=== PATIENT | male | born 1930 | race Caucasian/White ===

== ENCOUNTER 2016-09-06 17:13 | Emergency (ER) | payer MEDICARE ==
[2016-02-27 09:29] VITALS: BMI 23.0
[~2016-09-06 17:13] MED LIST: BAYER CHEWABLE81 MG PO; CELEXA10 MG PO; FLOMAX0.4 MG PO; HCTZ25 MG PO; HYDROCODONE-APA1 TAB PO; LANOXIN125 MCG PO; LEXAPRO10 MG PO; METOPROLOL TART25 MG PO; MIRAPEX0.5 MG PO; MULTI-DAY VITAM1 TAB PO; PRILOSEC10 M1 PO; TRAZODONE HCL50 MG PO; VOLTAREN25 MG PO; ZESTORETIC 20-1 EACH PO; ZOCOR20 MG PO
== END 2016-09-06 20:20 | disposition home or self-care (01) ==
LOC: D.ER 17:13
DX: M54.5 Low back pain (principal); F43.20 Adjustment disorder, unspecified

== ENCOUNTER 2016-10-05 19:50 | Emergency (ER) | payer MEDICARE ==
[2016-02-27 09:29] VITALS: BMI 23.0
== END 2016-10-05 22:00 | disposition home or self-care (01) ==
LOC: D.ER 19:50
DX: S30.0XXA Contusion of lower back and pelvis, initial encounter (principal); W18.30XA Fall on same level, unspecified, initial encounter; F17.200 Nicotine dependence, unspecified, uncomplicated

== ENCOUNTER 2016-12-30 18:14 | Observation (INO) | payer MEDICARE ==
[~2016-12-30] VITALS: Ht 180.3 cm; Wt 82.1 kg
[2016-12-30 19:05] LABS: BASOPHILS 0.2 % (0-2); EOSINOPHILS 7.7 % (0-7); HEMATOCRIT 35.4 % (42.0-54.0); HEMOGLOBIN 11.9 g/dL (13.5-17.5); IMMATURE GRANULOCYTES 0.2 % (0-5); LYMPHOCYTES 20.2 % (15-50); MCH 32.7 pg (26.0-34.0); MCHC 33.6 g/dL (31.0-37.0); MCV 97.3 fL (80.0-100.0); MEAN PLATELET VOLUME 9.8 fL (7.4-10.4); MONOCYTES 13.7 % (2-11); PLATELET COUNT 159 10x3/uL (130-400); RBC 3.64 10x6/uL (4.20-6.10); WBC 5.3 10x3/uL (4.8-10.8)
[2016-12-30 19:19] LABS: ALBUMIN 3.2 g/dL (3.4-5.0); ALKALINE PHOSPHATASE 106 U/L (46-116); ALT (SGPT) 20 U/L (10-68); CALC OSMOLALITY 284 mosm/kg (275-300); CALCIUM 8.9 mg/dL (8.5-10.1); CARBON DIOXIDE 25.1 mmol/L (21.0-32.0); CHLORIDE - SERUM 106 mmol/L (98-107); CREATININE - SERUM 1.2 mg/dL (0.6-1.3); GLUCOSE 98 mg/dL (74-106); PROTEIN - SERUM 7.7 g/dL (6.4-8.2); SODIUM 141 mmol/L (136-145); UREA NITROGEN 25 mg/dL (7-18); eGFR NON AFRICAN AMERICAN 61 mL/min (90-120)
[2016-12-30 19:30] LABS: CHOL - HDL RATIO 3.5 ratio (2.3-4.9); CHOLESTEROL, TOTAL 123 mg/dL (0-200); CKMB 2.6 U/L (0.0-3.6); CREATINE KINASE 70 UL (21-232); HDL CHOLESTEROL 35 mg/dL (32-96); LDL CHOLESTEROL 72 mg/dL (0-100); LDL-HDL RATIO 2.1 ratio (1.5-3.5); TRIGLYCERIDE 84 mg/dL (30-200); TROPONIN-I < 0.017 ng/mL (0.000-0.060)
--- NOTE | 2016-12-30 22:42 | NUR ---
REPORT RECEIVED FROM JODI BEE RN.
--- NOTE | 2016-12-30 23:07 | NUR ---
ARRIVED TO FLOOR VIA STRETCHER, ACCOMPANIED BY HOSPITAL STAFF. PLACED ON TELEMETRY. ORIENTED TO UNIT. CALL LIGHT IN REACH. WILL CONTINUE TO MONITOR. SEE NURSE ASSESSMENT.
[2016-12-31] VITALS: BP 117/54
[2016-12-31] MEDS ORDERED: NORVASC10 MG PO (00:35)
[2016-12-31] MEDS ORDERED: FOLIC ACID1 MG PO (00:36)
[2016-12-31] MEDS ORDERED: NORMODYNE / TR200 MG PO (00:36)
[2016-12-31] MEDS ORDERED: FUROSEMIDE20 MG PO (00:39)
[2016-12-31] MEDS ORDERED: K-TAB10 MEQ PO (00:40)
[2016-12-31] MEDS ORDERED: VITAMIN B-1100 M1 PO (00:44)
[2016-12-31] MEDS ORDERED: MIRALAX17 GM PO (00:45)
[2016-12-31] MEDS ORDERED: DIFLUCAN50 MG PO (00:48)
[2016-12-31] MEDS ORDERED: DURAGESIC1 PATCH .7 TRANSDERM (00:51)
--- NOTE | 2016-12-31 02:53 | NUR ---
CALL LIGHT IN REACH, WILL CONTINUE WITH PLAN OF CARE.
[2016-12-31 04:00] VITALS: BP 149/69
[2016-12-31 08:00] VITALS: BP 139/65
[2016-12-31 09:59] VITALS: Ht 180.3 cm; Wt 82.1 kg
[2016-12-31 12:00] VITALS: BP 158/80
[2016-12-31 16:00] VITALS: BP 130/59
--- NOTE | 2016-12-31 16:00 | NUR ---
ALERT AND ORIENTED X4. SITTING IN WHEELCHAIR SCROLLING AROUND IN FAIR. ANXIOUS TO GO BACK TO [facility]. JILLIAN WANTS TO WAIT FOR ECHO TO BE READ. DENIES ANY NEEDS. CONTINUE PLAN OF CARE AND SAFETY PRECAUTIONS.
[2016-12-31 19:00] VITALS: BP 133/47
--- NOTE | 2016-12-31 19:30 | NUR ---
RECEIVED PT IN W/C AAOX4 ROLLING AROUND IN W/C RESP UNLABORED DENIES ANY NEEDS OR DISCOMFORT AT THIS TIME NAD NOTED
[2017-01-01 04:00] VITALS: BP 127/68
--- NOTE | 2017-01-01 10:33 | CN ---
PATIENT NAME:KVNG FINLEY MEDICAL RECORD: [id number] : 31 LOCATION:[facility].2116 ADMIT DATE: 12/30/16 ACCOUNT: [id number] CONSULTING PHYSICIAN: ANGY PABLO MD REFERRING PHYSICIAN: LUIS WALSH MD DATE OF CONSULTATION: 12/31/2016 HISTORY OF PRESENT ILLNESS: Kvng Finley is an 86-year-old gentleman with no known cardiovascular history, has a history of hypertension, dyslipidemia and gastroesophageal reflux disease, has been having intermittent chest pain, this is somewhat atypical, stays quite active, not occurring at rest, sharp, radiating to the back. Cardiac enzymes are negative so far. EKG has some nonspecific ST-T changes, these appear more digoxin effect. We are asked to see him concerning his cardiovascular status. PAST MEDICAL HISTORY: Includes: 1. History of hypertension. 2. Dyslipidemia. 3. Osteoarthritis. 4. Has a history of alcohol abuse in the past. He does give somewhat of a meandering history. He has had a history of atrial fib as well. We are asked to see him concerning his cardiovascular status. ALLERGIES: AMOXICILLIN. MEDICATIONS: Include Diflucan 50 t.i.d., amlodipine 10 daily, digoxin 0.125 daily, labetalol 200 b.i.d., simvastatin 20 daily, aspirin 81 daily, Lexapro 10 daily, [place] 10/325 daily, trazodone 50 at bedtime, fentanyl patch q.72, Lasix 20 daily, potassium supplementation 10 daily, thiamine and folic acid daily. SOCIAL HISTORY: Currently, residing in rehab for over the past week, stays quite active, previous history of alcohol abuse. REVIEW OF SYSTEMS: The patient reports easy bruising but reports no swollen glands. The patient reports no fever, no night sweats, no significant weight gain, no significant weight loss. No significant exercise tolerance. The patient reports no dry eyes, no irritation, no vision change. Patient reports no difficulty hearing and no ear pain. Patient reports no frequent nose bleeds or nose and sinus problems. Patient reports on arm pain on exertion. No shortness of breath while lying down. No history of heart murmur. Patient reports no cough, no wheezing or coughing up blood. Patient reports no abdominal pain, no vomiting. Normal appetite. No diarrhea and not vomiting blood. No nausea and no constipation. Patient reports no incontinence. No difficulty urinating. No hematuria. No increased frequency. Patient reports no muscle aches. No weakness, no arthralgias, no back pain. No swelling of the extremities. Patient reports no abnormal mole, no jaundice, no rashes. Reports no loss of consciousness. No weakness and no numbness. No seizures, dizziness, or headaches. The patient reports no depression, no sleep disturbance, feeling safe in a relationship and no alcohol abuse. Patient reports on fatigue. Reports no runny nose or sinus pressure. No itching, no hives, and no frequent sneezing. PHYSICAL EXAMINATION: GENERAL: Pleasant gentleman in no acute distress, gives somewhat a meandering CONSULT REPORT [id number] KVNG FINLEY history, questionable Wernicke's type meandering. VITAL SIGNS: Blood pressure 149/69, pulse 66 and regular. HEENT: Normocephalic and atraumatic. NECK: No JVD or bruit. HEART: Regular. LUNGS: Chambers clear. ABDOMEN: Soft, nontender. EXTREMITIES: Pulses are well preserved, 2+ with no edema. DIAGNOSTIC DATA: ECG shows nonspecific ST-T changes inferolaterally consistent with digoxin changes. Enzymes are currently negative. IMPRESSION: I agree with the current management. We will check echocardiographic study for any focal wall motion abnormality. If this shows normal LV function, okay to discharge from cardiovascular standpoint. Thank you for the consultation. TRANSINT:[id number] Voice Confirmation ID: [id number] DOCUMENT ID: [id number] ANGY PABLO MD at 1033 CC: [id number] DICTATION DATE: 12/31/16828 COAL TRAMMER: 12/31/[address] [facility] [address] [place] [address]
--- NOTE | 2017-01-01 10:48 | NUR ---
Patient Name: KVNG TIERNEY Admission Status: ER Accout number: [id number] Admission Date: 12-30-2016 : 1930 Admission Diagnosis: Attending: LUIS WALSH Current LOS: 2 Anticipated DC Date: 01-01-2017 Planned Disposition: Nursing Facility [facility] Cert Primary Insurance: [employer] ADV PLANNED EXTERNAL PROVIDER: [facility], ALF CARE MEDICAID BED Discharge Planning Comments: * Is the patient Alert and Oriented? Yes 0 * How many steps to enter\exit or inside your home? NONE 0 * PCP DR. WALSH 0 * Pharmacy [facility] 0 * Preadmission Environment Building Services Coordinator [facility] 0 * Facility Name [facility] 0 * ADLs Partial Dependent 0 * Partial ADLs (Assistance needed) Bathing Medication Management 0 * Equipment Other 0 * Other Equipment ALL MEDICAL EQUIPMENT PROVIDED BY FACILITY 0 * List name and contact numbers for known caregivers / representatives who currently or will assist patient after discharge: NONE 0 * Community resources currently utilized None 0 * Please name any agencies selected above. NONE 0 * Additional services required to return to the preadmission environment? No 0 * Can the patient safely return to the preadmission environment? Yes 0 * Has this patient been hospitalized within the prior 30 days at any hospital? No 0 CM RECEIVED DISCHARGE ORDER, MET WITH PT IN ROOM TO DISCUSS DISCHARGE PLANNNING AND NEEDS. PT REPORTS LIVING AT [facility]. PT REPORTS HE HAS NO FAMILY TO CALL AND WILL BE RETURNING HOME TODAY TO [facility]. PT REPORTS THEY TAKE GOOD CARE OF HIM THERE AND WILL PICK HIM UP WITH THE [facility]. CM CALLED PT'S LISTED EMERGENCY CONTACT, [facility], , THE NUMBER WAS DISCONNECTED. CM CALLED [facility], , SPOKE TO JUAN WHO ADVISED PT WILL RETURN TO ALF CARE BED, VAN TO TREADLE CUT OFF SAW OPERATOR NOW. CM FAXED DISCHARGE INFORMATION TO [facility] AT [phone]. NURSE REPORT TO BE CALLED TO NING AT [facility], . [facility] WILL BE HERE AT ABOUT 1050 AM. Infrastructure Engineer: Austin Barragan
--- NOTE | 2017-01-01 12:10 | NUR ---
ALERT AND ORIENTED X4. SITTING UP IN WHEELCHAIR AT NURSES DESK. DISCHARGE PAPERS [facility]IGNED [facility]ART [facility] REPORT CALLED TO PINA BARCLAY AT [facility]. VAN TRANSPORTER ARRIVES. ASSIST TO WHEELCHAIR. REMAINS FREE FORM INJURY.
--- NOTE | 2017-01-02 12:22 | EC ---
PATIENT:KVNG TIERNEY DATE OF SERVICE: 12/30/16 SEX: M MEDICAL RECORD: [id number] DATE OF : 32 LOCATION:D.M2 D.211 AGE OF PATIENT: 86 ADMISSION DATE: 12/30/16 REFERRING PHYSICIAN: INTERPRETING PHYSICIAN: FAITH GRAHAM MD ECHOCARDIOGRAM REPORT ECHO CHARGES 4 ECHO COMPLETE CLINICAL DIAGNOSIS: CHEST PAIN ECHOCARDIOGRAPHIC MEASUREMENTS (adult normal given) AC root (d.<3.7cm) 3.3 cm LV Septum d (<1.2 cm> 1.4 cm Valve Excursion 1.5 cm LV Septum (systole) 1.6 cm Left Atria (s.<4.0cm> 4.0 cm LVPW d(<1.2cm) 1.6 cm RV (d.<2.3cm) 3.9 cm LVPW (sytole) 1.7 cm LV diastole(<5.6CM) 5.3 cm MV E-F(>70mm/sec) cm LV systole 4.3 cm LVOT Diameter 1.7 cm MV exc.(>10mm) cm Est.ejection fraction (50-75%) % Pericardial Effusion N DOPPLER: LVIT cm/sec A 87.0 cm/sec E 79.0 cm/sec LA cm/sec RVSP 19 mmHg LVOT 73 cm/sec AOP1/2T m/s Asc. Ao 192 cm/sec RVOT cm/sec RA cm/sec PA cm/sec AV Gradient Peak 14.78mmHg AV Mean 7.67 mmHg AV Area 1.0 cm MV Gradient Peak 4.00 mmHg MV Mean 1.86 mmHg MV Area cm COMMENTS: Floor Clerk: Cony PRETTY Care Coordination Manager: 3 Dr. Pablo TAPE# PACS DATE OF SERVICE: 12/31/2016 Echocardiogram FINDINGS: 1. Left ventricle chamber size is within normal limits. Left ventricular systolic function is normal. Overall ejection fraction estimated at 55%. 2. Left atrium, upper limits of normal at 4.0 cm. Right atrium and right ventricular chamber sizes are mildly dilated. 3. Valvular structures. 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 Valve area calculates to 1.0 cm-squared. There is a gradient of 15 mm across the valve. The remaining valvular structures have normal structure and motion. 4. Doppler interrogation elsewise only reveals mild tricuspid regurgitation. No other valvular insufficiency or stenosis. Pulmonary systolic pressure is preserved at 19 mmHg. 5. No evidence of pericardial effusion or left ventricular thrombus. TRANSINT:[id number] Voice Confirmation ID: [id number] DOCUMENT ID: [id number] FAITH GRAHAM MD at 1222 CC: [id number] DICTATION DATE: 12/31/16 1541 HELMET COVERER: 12/31/162101 DIS IN 01/01/17 [id number] [place] [address]
== END 2017-01-01 12:16 ==
LOC: D.ER 18:14 → D.M2 21:54 → OBSVTIME 21:54 → D.M2 01-01 12:16
PROVIDERS: Emergency Medicine; ADMIT Family Medicine
DX: R07.89 Other chest pain (principal); I25.10 Atherosclerotic heart disease of native coronary artery without angina pectoris; I10 Essential (primary) hypertension; E78.5 Hyperlipidemia, unspecified; K21.9 Gastro-esophageal reflux disease without esophagitis; E55.9 Vitamin D deficiency, unspecified; I48.0 Paroxysmal atrial fibrillation; J44.9 Chronic obstructive pulmonary disease, unspecified; F32.9 Major depressive disorder, single episode, unspecified; F10.10 Alcohol abuse, uncomplicated; M51.36 Other intervertebral disc degeneration, lumbar region; N40.0 Benign prostatic hyperplasia without lower urinary tract symptoms; Z72.0 Tobacco use